=== PATIENT | female | born 1950 | race Caucasian/White ===

== ENCOUNTER 2017-02-03 18:25 | Inpatient (IN) | payer OTHER ==
[~2017-02-03] VITALS: Ht 165.1 cm; Wt 66.5 kg
[2017-02-03] MEDS ORDERED: HYDROCORTISONE5 MG PO (19:36)
[2017-02-03 19:43] LABS: HEMATOCRIT 46.5 % (36.0-46.0); MCH 29.1 PG (29.0-34.0); MCHC 34.4 G/DL (30.0-36.0); MCV 84.7 FL (83-99); MEAN PLAT.VOLUME 9.8 uM^3 (9.5-12.4); PLATELET COUNT 133 K/uL (156-360); RBC DIS.WIDTH-CV 12.7 % (11.8-14.6); RBC DIS.WIDTH-SD 39.3 % (39-53); RED BLOOD COUNT 5.49 M/uL (3.80-5.20); WHITE BLOOD COUNT 8.6 K/uL (4.1-10.2)
[2017-02-03 19:54] LABS: CHLORIDE 100 mEq/L (99-109); POTASSIUM 3.2 mEq/L (3.7-5.4); SODIUM 136 mEq/L (136-147)
[2017-02-03 19:56] LABS: GLUCOSE 94 mg/dL (70-99)
[2017-02-03 19:57] LABS: ANION GAP 20 MEQ/L (2-14)
[2017-02-03 19:58] LABS: TOTAL BILIRUBIN 1.7 mg/dL (0.0-1.0)
[2017-02-03 19:59] LABS: ALKALINE PHOSPHATASE 62 IU/L (3-129)
[2017-02-03 20:00] LABS: GFR ESTIMATE (CALCULATED) > 59 mL/min/
[2017-02-03 20:01] LABS: UREA NITROGEN (BUN) 11 mg/dL (9-23)
[2017-02-03 20:06] LABS: TROP-I INTERPRETATION NEGATIVE; TROPONIN-I < 0.01 ng/mL (0.0-0.30)
[2017-02-03 20:31] LABS: INTER. NORMALIZED RATIO 1.1; PROTHROMBIN TIME 11.5 (9.2-11.2)
[2017-02-03 20:37] LABS: INFLUENZA A VIRAL ANTIGEN NEGATIVE; INFLUENZA B VIRAL ANTIGEN POSITIVE
[2017-02-03 20:59] LABS: LIPASE 72 U/L (1.0-51.0)
[2017-02-03] MEDS ORDERED: LEVOXYL112 MCG PO (22:13)
[2017-02-03] MEDS ORDERED: FLORINEF ACETA0.1 MG PO (22:14)
[2017-02-03] MEDS ORDERED: METFORMIN HCL500 M1 PO (22:14)
[2017-02-03 22:16] LABS: ADD MIUA? NO; BILIRUBIN NEGATIVE; BLOOD NEGATIVE; COLOR YELLOW ((YELLOW)); GLUCOSE (STRIP) NEGATIVE; KETONES 20; LEUKOCYTES NEGATIVE; NITRITE NEGATIVE; PROTEIN (STRIP) NEGATIVE; SPECIFIC GRAVITY 1.006 (1.000-1.030); UCUL ADDED? NO; UROBILINOGEN 0.2 MG/DL (0.2-1.0)
[2017-02-04] VITALS (7 sets, daily range): BP systolic 92–128; BP diastolic 60–72
[2017-02-04 10:50] LABS: HEMATOCRIT 40.2 % (36.0-46.0); MCH 29.1 PG (29.0-34.0); MCHC 34.6 G/DL (30.0-36.0); MCV 84.3 FL (83-99); MEAN PLAT.VOLUME 9.9 uM^3 (9.5-12.4); PLATELET COUNT 104 K/uL (156-360); RBC DIS.WIDTH-CV 13.2 % (11.8-14.6); RBC DIS.WIDTH-SD 40.7 % (39-53); RED BLOOD COUNT 4.77 M/uL (3.80-5.20)
[2017-02-04 10:52] LABS: WHITE BLOOD COUNT 3.5 K/uL (4.1-10.2)
[2017-02-04 11:02] LABS: ANION GAP 12 MEQ/L (2-14); CHLORIDE 111 MEQ/L (99-109); GFR ESTIMATE (CALCULATED) > 59 mL/min/; POTASSIUM 3.8 MEQ/L (3.7-5.4); SAMPLE HEMOLYSIS CHECK 0; SAMPLE ICTERIC CHECK 0; SAMPLE LIPEMIA CHECK 0; SODIUM 140 MEQ/L (136-147); UREA NITROGEN (BUN) 10 mg/dL (9-23)
[2017-02-04 11:06] LABS: GLUCOSE 326 mg/dL (70-99)
[2017-02-05] VITALS (7 sets, daily range): BP systolic 108–120; BP diastolic 60–82
[2017-02-05 07:23] LABS: EOSINOPHIL (%) 0 % (0-5); HEMATOCRIT 36.4 % (36.0-46.0); IMMATURE GRANULOCYTE (%) 0.3 % (0.0-0.7); INSTRUMENT ABS NEUTROPHIL CT 5.4 K/uL; LYMPHOCYTE COUNT 1.5 K/uL (1.0-2.8); MCH 28.8 PG (29.0-34.0); MCHC 33.5 G/DL (30.0-36.0); MCV 85.8 FL (83-99); MONOCYTE (%) 3.9 % (3-12); MONOCYTE COUNT 0.3 K/uL (0-0.8); NEUTROPHIL (%) 74.7 % (45-76); NEUTROPHIL COUNT 5.4 K/uL (1.8-6.4); PLATELET COUNT 104 K/uL (156-360); RBC DIS.WIDTH-CV 13.5 % (11.8-14.6); RBC DIS.WIDTH-SD 42.3 % (39-53); RED BLOOD COUNT 4.24 M/uL (3.80-5.20)
[2017-02-05 07:26] LABS: WHITE BLOOD COUNT 7.2 K/uL (4.1-10.2)
[2017-02-05 07:34] LABS: POINT-OF-CARE METER ID UU13113781
[2017-02-05 07:36] LABS: ALKALINE PHOSPHATASE 43 IU/L (3-129); ANION GAP 9 MEQ/L (2-14); CHLORIDE 112 MEQ/L (99-109); GFR ESTIMATE (CALCULATED) > 59 mL/min/; POTASSIUM 3.5 MEQ/L (3.7-5.4); SAMPLE HEMOLYSIS CHECK 0; SAMPLE ICTERIC CHECK 0; SAMPLE LIPEMIA CHECK 0; SODIUM 145 MEQ/L (136-147); TOTAL BILIRUBIN 0.6 MG/DL (0.0-1.0); UREA NITROGEN (BUN) 10 mg/dL (9-23)
[2017-02-05 07:38] LABS: GLUCOSE 139 mg/dL (70-99)
[2017-02-05 11:26] LABS: POINT-OF-CARE METER ID UU13113698
[2017-02-05 16:52] LABS: POINT-OF-CARE METER ID UU13113698
[2017-02-05 20:48] LABS: POINT-OF-CARE METER ID UU14174216
[2017-02-06 03:51] VITALS: BP 128/62
[2017-02-06 07:19] LABS: EOSINOPHIL (%) 0 % (0-5); HEMATOCRIT 34.2 % (36.0-46.0); IMMATURE GRANULOCYTE (%) 0.3 % (0.0-0.7); INSTRUMENT ABS NEUTROPHIL CT 2.1 K/uL; LYMPHOCYTE COUNT 1.5 K/uL (1.0-2.8); MCH 29.4 PG (29.0-34.0); MCHC 33.9 G/DL (30.0-36.0); MCV 86.6 FL (83-99); MEAN PLAT.VOLUME 10.1 uM^3 (9.5-12.4); MONOCYTE COUNT 0.3 K/uL (0-0.8); NEUTROPHIL (%) 53.5 % (45-76); NEUTROPHIL COUNT 2.1 K/uL (1.8-6.4); PLATELET COUNT 81 K/uL (156-360); RBC DIS.WIDTH-CV 13.4 % (11.8-14.6); RBC DIS.WIDTH-SD 42.6 % (39-53); RED BLOOD COUNT 3.95 M/uL (3.80-5.20); WHITE BLOOD COUNT 3.8 K/uL (4.1-10.2)
[2017-02-06 08:09] LABS: ANION GAP 10 MEQ/L (2-14); CHLORIDE 108 MEQ/L (99-109); GFR ESTIMATE (CALCULATED) > 59 mL/min/; POTASSIUM 3.5 MEQ/L (3.7-5.4); SAMPLE HEMOLYSIS CHECK 0; SAMPLE ICTERIC CHECK 0; SAMPLE LIPEMIA CHECK 0; SODIUM 144 MEQ/L (136-147); UREA NITROGEN (BUN) 11 mg/dL (9-23)
[2017-02-06 08:10] LABS: POINT-OF-CARE METER ID UU13113781
[2017-02-06 08:19] LABS: GLUCOSE 100 mg/dL (70-99)
[2017-02-06 09:11] VITALS: BP 108/68
[2017-02-06 10:30] VITALS: BP 117/56
[2017-02-06 12:10] VITALS: BP 126/68
[2017-02-06 16:47] VITALS: BP 118/62
[2017-02-06 21:53] LABS: POINT-OF-CARE METER ID UU14188577
[2017-02-06 22:20] VITALS: BP 142/62
[2017-02-07 04:18] VITALS: BP 128/80
[2017-02-07 06:21] LABS: POINT-OF-CARE METER ID UU14149397
[2017-02-07 08:19] VITALS: BP 141/78
[2017-02-07 08:21] VITALS: BP 141/78
[2017-02-07 11:26] VITALS: BP 128/68
[2017-02-07 11:49] LABS: POINT-OF-CARE METER ID UU14149397
[2017-02-07 15:34] VITALS: BP 123/81
[2017-02-07 16:53] LABS: POINT-OF-CARE METER ID UU14149397
[2017-02-07 21:47] VITALS: BP 128/80
[2017-02-07 22:30] LABS: POINT-OF-CARE METER ID UU14188577
[2017-02-08 00:18] VITALS: BP 134/69
[2017-02-08 04:35] VITALS: BP 132/77
[2017-02-08 07:51] VITALS: BP 144/74
[2017-02-08 10:10] LABS: MCH 29.1 PG (29.0-34.0); MCHC 33.8 G/DL (30.0-36.0); PLATELET COUNT 95 K/uL (156-360); RBC DIS.WIDTH-SD 40.6 % (39-53); WHITE BLOOD COUNT 4.5 K/uL (4.1-10.2)
[2017-02-08 11:31] LABS: ALKALINE PHOSPHATASE 39 IU/L (3-129); ANION GAP 9 MEQ/L (2-14); CHLORIDE 101 MEQ/L (99-109); DIRECT BILIRUBIN 0.2 mg/dL (0.0-0.3); GFR ESTIMATE (CALCULATED) > 59 mL/min/; GLUCOSE 129 mg/dL (70-99); SAMPLE HEMOLYSIS CHECK 0; SAMPLE ICTERIC CHECK 0; SAMPLE LIPEMIA CHECK 0; SODIUM 140 MEQ/L (136-147); TOTAL BILIRUBIN 0.7 MG/DL (0.0-1.0); UREA NITROGEN (BUN) 8 mg/dL (9-23)
[2017-02-08 12:00] VITALS: BP 139/78
== END 2017-02-08 13:32 | disposition home or self-care (01) | DRG 872 ==
LOC: EME 18:25 → 3EAST 02-04 00:15 → EDOF 02-04 00:15 → 4EAST 02-04 01:34 → 3EAST 02-06 10:17
PROVIDERS: Family Medicine; Hospitalist; Physician Assistant; Student in an Organized Health Care Education/Training Program
DX: A41.9 Sepsis, unspecified organism (principal); E27.2 Addisonian crisis; R65.20 Severe sepsis without septic shock; E03.9 Hypothyroidism, unspecified; R00.0 Tachycardia, unspecified; R73.03 Prediabetes; J10.1 Influenza due to other identified influenza virus with other respiratory manifestations; R74.0 Nonspecific elevation of levels of transaminase and lactic acid dehydrogenase [LDH]; E86.0 Dehydration; T38.0X5A Adverse effect of glucocorticoids and synthetic analogues, initial encounter; R73.9 Hyperglycemia, unspecified
CPT/HCPCS: 70450; 71020; 74177; 80048; 80053; 80076; 81003; 82948; 83605; 83690; 84484; 85025; 85027; 85610; 87040; 87502; 93005; 94799; 99281; 99285; J1644; J1720; J1815; J2405; J2543; J7030

== ENCOUNTER → 2018-06-30 | Outpatient (CLI) | payer OTHER ==
[~2018-06-30] VITALS: Ht 163.8 cm; Wt 63.5 kg
[~2018-06-30] MED LIST: FLORINEF ACETA0.1 MG PO; HYDROCORTISONE5 MG PO; LEVOXYL112 MCG PO; METFORMIN HCL500 M1 PO; POTASSIUM CHLO10 ME3 PO
== END | disposition home or self-care (01) ==
LOC: AMB 08:58
PROVIDERS: Internal Medicine
PROC: 0DJD8ZZ Inspection of Lower Intestinal Tract, Via Natural or Artificial Opening Endoscopic (ICD-10-PCS; principal; 2018-06-30)
DX: Z12.11 Encounter for screening for malignant neoplasm of colon (principal); K64.8 Other hemorrhoids; Z86.010 Personal history of colon polyps; Z80.0 Family history of malignant neoplasm of digestive organs; E27.40 Unspecified adrenocortical insufficiency; R74.0 Nonspecific elevation of levels of transaminase and lactic acid dehydrogenase [LDH]; E24.9 Cushing's syndrome, unspecified; E11.9 Type 2 diabetes mellitus without complications; E78.5 Hyperlipidemia, unspecified; E03.9 Hypothyroidism, unspecified; M81.0 Age-related osteoporosis without current pathological fracture; Z82.49 Family history of ischemic heart disease and other diseases of the circulatory system; Z83.3 Family history of diabetes mellitus
CPT/HCPCS: 82948